=== PATIENT | female | born 1960 | race Caucasian/White ===

== ENCOUNTER 2017-09-10 05:31 | Inpatient (IN) | payer MEDICAID ==
[2017-09-02 14:19] LABS: BASOPHILS # (AUTO) 0.1 X10'3 (0-0.2); EOSINOPHILS % (AUTO) 0.8 % (0-6); LYMPHOCYTES # (AUTO) 2.1 X10'3 (1.1-4.8); LYMPHOCYTES % (AUTO) 32.8 % (21-51); MEAN CORPUSCULAR HEMOGLOBIN 30.3 PG (27.0-31.0); MEAN CORPUSCULAR HGB CONC 33.4 % (33.0-36.5); MEAN CORPUSCULAR VOLUME 90.8 FL (78-98); MEAN PLATELET VOLUME 8.4 FL (7.4-10.4); MONOCYTES # (AUTO) 0.6 X10'3 (0-0.9); MONOCYTES % (AUTO) 8.8 % (2-12); NEUTROPHILS # (AUTO) 3.6 X10'3 (1.8-7.7); NEUTROPHILS % (AUTO) 56.6 % (42-75); PRE OP HEMATOCRIT 48.9 % (35.0-45.0); PRE OP HEMOGLOBIN 16.3 g/dL (12.0-16.0); PRE OP PLATELET COUNT 266 X10'3 (140-440); RED BLOOD COUNT 5.39 X10'6 (4.20-5.60); RED CELL DISTRIBUTION WIDTH 13.2 % (11.5-14.5)
[2017-09-02 14:42] LABS: ALBUMIN 3.7 G/DL (3.4-5.0); ALBUMIN/GLOBULIN RATIO 0.8 (1.1-1.5); ALKALINE PHOSPHATASE 80 IU/L (46-116); BLOOD UREA NITROGEN 9 MG/DL (7-18); BUN/CREATININE RATIO 12.9 (6.6-38.0); CALCIUM 9.1 MG/DL (8.5-10.1); CHLORIDE 104 MMOL/L (99-107); PRE OP ALT 53 U/L (30-65); PRE OP ANION GAP 9 (8-16); PRE OP AST 39 U/L (10-37); PRE OP BILIRUB, TOTAL 0.3 MG/DL (0.0-1.0); PRE OP GLUCOSE 85 MG/DL (70-104); PRE OP POTASSIUM 3.7 MMOL/L (3.4-5.1); PRE OP SODIUM 140 MMOL/L (135-145); TOTAL CARBON DIOXIDE 26.8 MMOL/L (24-32); TOTAL PROTEIN 8.2 G/DL (6.4-8.2); eGFR 87 ML/MIN
[2017-09-10] VITALS (20 sets, daily range): BP systolic 94–153; BP diastolic 52–90
[~2017-09-10] VITALS: Ht 162.6 cm; Wt 96.3 kg
[~2017-09-10 05:31] MED LIST: LEVO25TA2 PO; acetaminophen 325mg tablet PO ONE; clindamycin-Cleocin 900mg/D5W 50 ML IV ONE; famotidine 20mg tablet PO ONE; gabapentin 300mg capsule PO ONE; metoclopramide 5 mg/ml inj IV ONE; oxyCODONE SR 10mg (sust. release) tab PO ONE; ringers solution, lacted 1,000 ML IV SCH; tranexamic acid inj. 1,000 MG in normal saline 100ml IV soln 90 ML IV ONE; vancomycin inj 1,500 MG in normal saline 300ml IV soln IV ONE
[2017-09-10] MEDS ORDERED: LIDOcaine 1% (10mg/ml) 2ml vial ONE (06:00)
[2017-09-10] MEDS ORDERED: morphine 10mg/ml inj. ONE (06:57)
[2017-09-10] MEDS ORDERED: ketorolac trometh. 30mg/ml inj. ONE (06:57)
[2017-09-10] MEDS ORDERED: vancomycin 1,000mg inj ONE (06:57)
[2017-09-10] MEDS ORDERED: ROPIVAcaine 0.5% (5mg/ml) 30ml vial ONE ×2 (06:58→10:02)
[2017-09-10] MEDS ORDERED: cloNIDine hcl/PF 100mcg/ml inj ONE (07:21)
[2017-09-10] MEDS ORDERED: MIDAZolam 1mg/ml 10ml vial ONE (07:23)
[2017-09-10] MEDS ORDERED: fentaNYL/PF 50MCG/1 ML 2ML syringe ONE (07:24)
[2017-09-10] MEDS ORDERED: BUPIVAcaine/PF 7.5mg/ml (0.75%) 10ml vial ONE (07:26)
[2017-09-10] MEDS ORDERED: LIDOcaine 1%/PF 5ML 10 MG/ML VIAL ONE (07:28)
[2017-09-10] MEDS ORDERED: propofol inj 0 ML IV ONE (07:28)
[2017-09-10] MEDS ORDERED: morphine /PF 1mg/ml 10ml inj. ONE (07:29)
[2017-09-10] MEDS ORDERED: calcium chloride 100 MG/1 ML inj IV ONE (07:39)
[2017-09-10] MEDS ORDERED: ringers solution, lacted 1,000 ML IV SCH (08:58)
[2017-09-10] MEDS ORDERED: naloxone 2mg/2ml inj 1.8 MG in normal saline 500ml IV soln 500 ML IV PRN (08:58)
[2017-09-10] MEDS ORDERED: morphine 4 MG/ML inj SYRINge IV PRN ×2 (09:00)
[2017-09-10] MEDS ORDERED: diphenhydrAMINE 50 mg/ml inj IV PRN (09:00)
[2017-09-10] MEDS ORDERED: proCHLORperazine 10 MG/2 ml inj IV PRN (09:00)
[2017-09-10] MEDS ORDERED: ondansetron/PF 4mg/2ml inj IV PRN ×3 (09:00→10:10)
[2017-09-10] MEDS ORDERED: meperidine/PF 25mg/ml syringe IV PRN ×3 (09:00)
[2017-09-10] MEDS ORDERED: acetaminophen 325mg tablet PO PRN (10:10)
[2017-09-10] MEDS ORDERED: diphenhydrAMINE 25mg capsule PO PRN ×2 (10:10)
[2017-09-10] MEDS ORDERED: oxyCODONE IR 5mg (immed. release) tablet PO PRN (10:10)
[2017-09-10] MEDS ORDERED: magnesium hydroxide 30ml (MOM) UD suspension PO PRN (10:10)
[2017-09-10] MEDS ORDERED: bisacodyl 10mg suppository rectal RC PRN (10:10)
[2017-09-10] MEDS ORDERED: HYDROmorphone inj. 0.5 MG/0.5 ML DISP.SYRIN IV PRN ×2 (10:10)
[2017-09-10] MEDS ORDERED: HYDROmorphone 1 mg/ml syringe IV PRN (10:26)
[2017-09-10] MEDS ORDERED: tranexamic acid inj. 1,000 MG in normal saline 100ml IV soln 100 ML IV ONE (13:10)
[2017-09-10] MEDS: acetaminophen 325mg tablet PO SCH ×2 (13:44→20:16)
[2017-09-10] MEDS: gabapentin 300mg capsule PO SCH ×2 (13:44→20:16)
[2017-09-10] MEDS: potassium cl 20mEq in 1/2 NS 1,000 ML IV SCH ×2 (14:04→18:06)
[2017-09-10] MEDS: oxyCODONE IR 5mg (immed. release) tablet PO PRN ×2 (14:59→23:10)
[2017-09-10] MEDS ORDERED: vancomycin/NS 1 GM ADD-VANTAGE 250 ML IV SCH (20:00)
[2017-09-10] MEDS: sennosides 8.6mg tablet PO SCH (20:16)
[2017-09-11] MEDS: potassium cl 20mEq in 1/2 NS 1,000 ML IV SCH ×3 (01:57→18:06)
[2017-09-11] MEDS: acetaminophen 325mg tablet PO SCH ×4 (01:58→19:08)
[2017-09-11 02:00] VITALS: BP 113/67
[2017-09-11] MEDS: oxyCODONE IR 5mg (immed. release) tablet PO PRN ×4 (03:38→21:37)
[2017-09-11 05:00] VITALS: BP 137/76
[2017-09-11] MEDS: levoTHYROXINE 25mcg tablet PO SCH (07:55)
[2017-09-11] MEDS: gabapentin 300mg capsule PO SCH ×3 (07:55→21:37)
[2017-09-11] MEDS: enoxaparin 40mg/0.4ml syringe SQ SCH (07:58)
[2017-09-11 08:34] LABS: BASOPHILS % (AUTO) 0.2 % (0-1); EOSINOPHILS # (AUTO) 0.4 X10'3 (0-0.9); EOSINOPHILS % (AUTO) 4.9 % (0-6); HEMATOCRIT 38.6 % (35.0-45.0); HEMOGLOBIN 13.3 g/dl (12.0-16.0); LYMPHOCYTES # (AUTO) 0.6 X10'3 (1.1-4.8); LYMPHOCYTES % (AUTO) 8.2 % (21-51); MEAN CORPUSCULAR HEMOGLOBIN 31.1 PG (27.0-31.0); MEAN CORPUSCULAR HGB CONC 34.3 % (33.0-36.5); MEAN CORPUSCULAR VOLUME 90.6 FL (78-98); MEAN PLATELET VOLUME 9.9 FL (7.4-10.4); MONOCYTES # (AUTO) 0.4 X10'3 (0-0.9); MONOCYTES % (AUTO) 6.2 % (2-12); NEUTROPHILS # (AUTO) 5.8 X10'3 (1.8-7.7); NEUTROPHILS % (AUTO) 80.5 % (42-75); PLATELET COUNT 182 X10'3 (140-440); RED BLOOD COUNT 4.26 X10'6 (4.20-5.60); RED CELL DISTRIBUTION WIDTH 12.8 % (11.5-14.5); WHITE BLOOD COUNT 7.2 X10'3 (4.5-11.0)
[2017-09-11 10:00] VITALS: BP 134/72
[2017-09-11] MEDS: HYDROmorphone 1 mg/ml syringe IV PRN ×2 (13:21→19:08)
[2017-09-11 14:15] VITALS: BP 141/72
[2017-09-11 18:00] VITALS: BP 147/94
[2017-09-11] MEDS: celeCOXIB 100mg capsule PO SCH (19:08)
[2017-09-11] MEDS: sennosides 8.6mg tablet PO SCH (21:37)
[2017-09-11 22:00] VITALS: BP 154/98
[2017-09-12] MEDS: oxyCODONE IR 5mg (immed. release) tablet PO PRN ×6 (01:48→22:47)
[2017-09-12] MEDS: acetaminophen 325mg tablet PO SCH ×2 (01:48→07:40)
[2017-09-12] MEDS: potassium cl 20mEq in 1/2 NS 1,000 ML IV SCH (02:06)
[2017-09-12 06:00] VITALS: BP 179/101
[2017-09-12] MEDS: celeCOXIB 100mg capsule PO SCH (07:39)
[2017-09-12] MEDS: enoxaparin 40mg/0.4ml syringe SQ SCH (07:39)
[2017-09-12] MEDS: levoTHYROXINE 25mcg tablet PO SCH (07:40)
[2017-09-12] MEDS: gabapentin 300mg capsule PO SCH ×3 (07:40→20:18)
[2017-09-12 07:51] LABS: BASOPHILS % (AUTO) 0.2 % (0-1); EOSINOPHILS # (AUTO) 0.4 X10'3 (0-0.9); EOSINOPHILS % (AUTO) 5.6 % (0-6); HEMATOCRIT 42.5 % (35.0-45.0); HEMOGLOBIN 14.6 g/dl (12.0-16.0); LYMPHOCYTES # (AUTO) 1.6 X10'3 (1.1-4.8); LYMPHOCYTES % (AUTO) 20.4 % (21-51); MEAN CORPUSCULAR HGB CONC 34.4 % (33.0-36.5); MEAN CORPUSCULAR VOLUME 90.2 FL (78-98); MEAN PLATELET VOLUME 9.5 FL (7.4-10.4); MONOCYTES # (AUTO) 0.5 X10'3 (0-0.9); MONOCYTES % (AUTO) 6.7 % (2-12); NEUTROPHILS # (AUTO) 5.4 X10'3 (1.8-7.7); NEUTROPHILS % (AUTO) 67.1 % (42-75); PLATELET COUNT 210 X10'3 (140-440); RED BLOOD COUNT 4.71 X10'6 (4.20-5.60); RED CELL DISTRIBUTION WIDTH 13.2 % (11.5-14.5); WHITE BLOOD COUNT 8.1 X10'3 (4.5-11.0)
[2017-09-12 10:00] VITALS: BP 155/83
[2017-09-12] MEDS ORDERED: acetaminophen 325mg tablet PO PRN (10:10)
[2017-09-12 18:00] VITALS: BP 174/90
[2017-09-12] MEDS: sennosides 8.6mg tablet PO SCH (20:18)
[2017-09-12] MEDS ORDERED: mag hydrox/Alum hydrox/simeth 30ml oral suspension PO ONE (20:20)
[2017-09-12 22:00] VITALS: BP 170/87
[2017-09-13] MEDS: oxyCODONE IR 5mg (immed. release) tablet PO PRN ×6 (02:23→23:58)
[2017-09-13 05:00] VITALS: BP 146/71
[2017-09-13] MEDS: levoTHYROXINE 25mcg tablet PO SCH (06:59)
[2017-09-13] MEDS: gabapentin 300mg capsule PO SCH ×3 (07:37→20:12)
[2017-09-13] MEDS: enoxaparin 40mg/0.4ml syringe SQ SCH (07:37)
[2017-09-13 07:42] LABS: BASOPHILS % (AUTO) 0.4 % (0-1); EOSINOPHILS # (AUTO) 0.2 X10'3 (0-0.9); EOSINOPHILS % (AUTO) 3.4 % (0-6); HEMATOCRIT 42.4 % (35.0-45.0); HEMOGLOBIN 14.6 g/dl (12.0-16.0); LYMPHOCYTES # (AUTO) 1.9 X10'3 (1.1-4.8); LYMPHOCYTES % (AUTO) 26.9 % (21-51); MEAN CORPUSCULAR HGB CONC 34.4 % (33.0-36.5); MEAN CORPUSCULAR VOLUME 90.1 FL (78-98); MONOCYTES # (AUTO) 0.5 X10'3 (0-0.9); MONOCYTES % (AUTO) 7.5 % (2-12); NEUTROPHILS # (AUTO) 4.3 X10'3 (1.8-7.7); NEUTROPHILS % (AUTO) 61.8 % (42-75); PLATELET COUNT 208 X10'3 (140-440); RED BLOOD COUNT 4.71 X10'6 (4.20-5.60)
[2017-09-13 10:00] VITALS: BP 156/74
[2017-09-13 18:00] VITALS: BP 169/90
[2017-09-13] MEDS: sennosides 8.6mg tablet PO SCH (20:12)
[2017-09-13 22:00] VITALS: BP 149/97
[2017-09-14] MEDS: oxyCODONE IR 5mg (immed. release) tablet PO PRN ×2 (04:09→08:34)
[2017-09-14 07:26] VITALS: BP 126/90
[2017-09-14] MEDS: levoTHYROXINE 25mcg tablet PO SCH (07:34)
[2017-09-14] MEDS: gabapentin 300mg capsule PO SCH (07:34)
[2017-09-14] MEDS: enoxaparin 40mg/0.4ml syringe SQ SCH (07:34)
== END 2017-09-14 10:25 | disposition home or self-care (01) | DRG 302 ==
LOC: PAS IN 05:31 → EDSTATUS 08:30 → ORTHO 4S 11:45
PROVIDERS: ADMIT Orthopaedic Surgery; ATTEND Orthopaedic Surgery
PROC: 0SRD0J9 Replacement of Left Knee Joint with Synthetic Substitute, Cemented, Open Approach (ICD-10-PCS; principal; 2017-09-10 07:22)
DX: M17.12 Unilateral primary osteoarthritis, left knee (principal); E03.9 Hypothyroidism, unspecified; F17.210 Nicotine dependence, cigarettes, uncomplicated; J45.909 Unspecified asthma, uncomplicated; Z88.2 Allergy status to sulfonamides; Z88.0 Allergy status to penicillin; Z88.8 Allergy status to other drugs, medicaments and biological substances; Z88.1 Allergy status to other antibiotic agents
CPT/HCPCS: 0232T; 36415; 80053; 84443; 85025; 87070; 93005; 97110; 97116; 97161; 97530; A6255; A6258; A6455; A7000; C1713; C1758; C1776; J0735; J1170; J1650; J1885; J2001; J2250; J2270; J2274; J2405; J2704; J2765; J2795; J3010; J3370; J3490; J7030; J7120; Q0163

== ENCOUNTER 2017-10-28 12:37 | Outpatient (CLI) | payer MEDICAID ==
[~2017-10-28 12:37] MED LIST changes: -acetaminophen 325mg tablet PO ONE; -clindamycin-Cleocin 900mg/D5W 50 ML IV ONE; -famotidine 20mg tablet PO ONE; -gabapentin 300mg capsule PO ONE; -metoclopramide 5 mg/ml inj IV ONE; -oxyCODONE SR 10mg (sust. release) tab PO ONE; -ringers solution, lacted 1,000 ML IV SCH; -tranexamic acid inj. 1,000 MG in normal saline 100ml IV soln 90 ML IV ONE; -vancomycin inj 1,500 MG in normal saline 300ml IV soln IV ONE
[2017-10-28 13:13] LABS: BASOPHILS % (AUTO) 0.6 % (0-1); EOSINOPHILS # (AUTO) 0.2 X10'3 (0-0.9); EOSINOPHILS % (AUTO) 2.4 % (0-6); HEMATOCRIT 41.7 % (35.0-45.0); HEMOGLOBIN 13.9 g/dl (12.0-16.0); LYMPHOCYTES # (AUTO) 2.1 X10'3 (1.1-4.8); LYMPHOCYTES % (AUTO) 33.2 % (21-51); MEAN CORPUSCULAR HEMOGLOBIN 29.6 PG (27.0-31.0); MEAN CORPUSCULAR HGB CONC 33.4 % (33.0-36.5); MEAN CORPUSCULAR VOLUME 88.8 FL (78-98); MEAN PLATELET VOLUME 8.8 FL (7.4-10.4); MONOCYTES # (AUTO) 0.4 X10'3 (0-0.9); MONOCYTES % (AUTO) 6.8 % (2-12); NEUTROPHILS # (AUTO) 3.6 X10'3 (1.8-7.7); PLATELET COUNT 281 X10'3 (140-440); RED BLOOD COUNT 4.69 X10'6 (4.20-5.60); RED CELL DISTRIBUTION WIDTH 13.2 % (11.5-14.5); WHITE BLOOD COUNT 6.4 X10'3 (4.5-11.0)
== END 2017-10-28 23:59 | disposition home or self-care (01) ==
LOC: VAS 12:37
PROVIDERS: ATTEND Orthopaedic Surgery
DX: T84.54XA Infection and inflammatory reaction due to internal left knee prosthesis, initial encounter (principal); F17.200 Nicotine dependence, unspecified, uncomplicated; J45.909 Unspecified asthma, uncomplicated; Y79.2 Prosthetic and other implants, materials and accessory orthopedic devices associated with adverse incidents; Y92.89 Other specified places as the place of occurrence of the external cause
CPT/HCPCS: 36415; 85025; 85651; 86140; 93971

== ENCOUNTER 2020-10-04 08:00 | Inpatient (IN) | payer MEDICAID ==
[2020-09-28 11:34] LABS: BASOPHILS # (AUTO) 0.1 X10'3 (0-0.2); BASOPHILS % (AUTO) 1.2 % (0-1); EOSINOPHILS # (AUTO) 0.1 X10'3 (0-0.9); EOSINOPHILS % (AUTO) 2.1 % (0-6); LYMPHOCYTES # (AUTO) 2.5 X10'3 (1.1-4.8); MEAN CORPUSCULAR HEMOGLOBIN 30.6 PG (27.0-31.0); MEAN CORPUSCULAR HGB CONC 32.9 g/dL (33.0-36.5); MEAN CORPUSCULAR VOLUME 92.9 FL (78-98); MEAN PLATELET VOLUME 8.6 FL (7.4-10.4); MONOCYTES # (AUTO) 0.6 X10'3 (0-0.9); MONOCYTES % (AUTO) 8.4 % (2-12); NEUTROPHILS # (AUTO) 3.4 X10'3 (1.8-7.7); NEUTROPHILS % (AUTO) 51.3 % (42-75); PRE OP HEMATOCRIT 49.1 % (35.0-45.0); PRE OP HEMOGLOBIN 16.1 g/dL (12.0-16.0); PRE OP PLATELET COUNT 233 X10'3 (140-440); RED BLOOD COUNT 5.28 X10'6 (4.20-5.60); RED CELL DISTRIBUTION WIDTH 13.7 % (11.5-14.5)
[2020-09-28 11:36] LABS: PRE OP PARTIAL THROMB. TIME 27 SECONDS (22-32)
[2020-09-28 11:48] LABS: ALBUMIN 3.8 G/DL (3.4-5.0); ALBUMIN/GLOBULIN RATIO 0.9 (1.1-1.5); ALKALINE PHOSPHATASE 77 IU/L (46-116); BLOOD UREA NITROGEN 14 MG/DL (7-18); BUN/CREATININE RATIO 18.7 (6.6-38.0); CALCIUM 8.6 MG/DL (8.5-10.1); CHLORIDE 106 MMOL/L (99-107); CREATININE 0.75 MG/DL (0.40-0.90); PRE OP ALT 55 U/L (30-65); PRE OP ANION GAP 10 (8-16); PRE OP AST 35 U/L (10-37); PRE OP BILIRUB, TOTAL 0.3 MG/DL (0.0-1.0); PRE OP GLUCOSE 95 MG/DL (70-104); PRE OP POTASSIUM 3.9 MMOL/L (3.4-5.1); PRE OP SODIUM 142 MMOL/L (135-145); TOTAL CARBON DIOXIDE 26.1 MMOL/L (24-32); eGFR 79 ML/MIN
[2020-10-04] VITALS (24 sets, daily range): BP systolic 93–131; BP diastolic 53–86
[~2020-10-04] VITALS: Ht 162.6 cm; Wt 93.9 kg
[~2020-10-04 08:00] MED LIST changes: +GABA300C PO; +MILK500C PO; +ROPIVAcaine 0.5% (5mg/ml) 30ml vial ONE; +clindamycin-Cleocin 900mg/D5W 50 ML IV ONE; +epiNEPHrine 1 mg/ml inj ONE; +famotidine 20mg tablet PO ONE; +ketorolac trometh. 30mg/ml inj. ONE; +morphine 10mg/ml inj. ONE; +ringers solution, lacted 1,000 ML IV SCH; +tranexamic acid 1gm/0.7% sal. 100 ML IV ONE; +vancomycin 1,000mg inj ONE; +vancomycin 1,500 MG in NS 300ml IV soln IV ONE
[2020-10-04] MEDS ORDERED: ondansetron/PF 4mg/2ml inj ONE (08:49)
[2020-10-04] MEDS ORDERED: ondansetron/PF 4mg/2ml inj IV ONE (08:50)
[2020-10-04] MEDS ORDERED: tetracaine 1% (10mg/ml) pres. free inj. ONE (10:31)
[2020-10-04] MEDS ORDERED: morphine /PF 1mg/ml 10ml inj. ONE (10:32)
[2020-10-04] MEDS ORDERED: propofol inj 20 ML IV ONE ×5 (10:55→13:12)
[2020-10-04] MEDS ORDERED: MIDAZolam 1 MG/ML 5ML VIAL ONE (10:55)
[2020-10-04] MEDS ORDERED: labetalol 20mg/4ml (5mg/ml) syringe IV PRN (11:15)
[2020-10-04] MEDS ORDERED: acetaminophen 1,000mg/100ml IV 100 ML IV PRN (11:15)
[2020-10-04] MEDS ORDERED: diphenhydrAMINE 50 mg/ml inj IV PRN (11:15)
[2020-10-04] MEDS ORDERED: morphine 2 MG/ML inj. syringe IV PRN (11:15)
[2020-10-04] MEDS ORDERED: ringers solution, lacted 1,000 ML IV SCH (11:15)
[2020-10-04] MEDS ORDERED: ondansetron/PF 4mg/2ml inj IV PRN ×3 (11:15→13:40)
[2020-10-04] MEDS ORDERED: proCHLORperazine 10 MG/2 ml inj IV PRN (11:15)
[2020-10-04] MEDS ORDERED: naloxone 2mg/2ml inj 2 MG in normal saline 500ml IV soln 500 ML IV PRN (11:15)
[2020-10-04] MEDS ORDERED: hydrALAZINE 20mg/ml inj. IV PRN (11:15)
[2020-10-04] MEDS ORDERED: morphine 4 MG/ML inj SYRINge IV PRN (11:15)
[2020-10-04] MEDS ORDERED: meperidine/PF 25mg/ml syringe IV PRN ×3 (11:15)
[2020-10-04] MEDS ORDERED: fentaNYL/PF 50MCG/1 ML 2ML syringe ONE (12:14)
[2020-10-04] MEDS ORDERED: ROPIVAcaine 0.5% (5mg/ml) 30ml vial ONE (13:27)
[2020-10-04] MEDS ORDERED: tranexamic acid 1gm/0.7% sal. 100 ML IV ONE (13:40)
[2020-10-04] MEDS ORDERED: bisacodyl 10mg suppository rectal RC PRN (13:40)
[2020-10-04] MEDS ORDERED: acetaminophen 325mg tablet PO PRN (13:40)
[2020-10-04] MEDS ORDERED: diphenhydrAMINE 25mg capsule PO PRN ×2 (13:40)
[2020-10-04] MEDS ORDERED: oxyCODONE IR 5mg (immed. release) tablet PO PRN (13:40)
--- NOTE | 2020-10-04 13:55 | NUR ---
PT RECEIVED FROM OR VIA BED, ACCOMPANIED BY DR. DOS SANTOS, ANESTHESIOLOGIST - REPORT GIVEN, VSS, PT AWAKENS WITH VERBAL STIMULATION, 20G PIV TO LEFT WRIST-LR RUNNING AT 100ML/HR, F/C IN PLACE-DRAINING, RIGHT KNEE WRAP IWTH ICE PACK IN PLACE-CDI, ON-Q TUBING VISIBLE, +2 PULSES TO BLE, SENSATION L3 - DENIES ANY PAIN.
[2020-10-04] MEDS: ROPIVAcaine 0.2%/PF PUMP/bolus 545 ML ADDCANAL SCH ×2 (14:31→20:30)
--- NOTE | 2020-10-04 15:26 | NUR ---
Patient in room PAS IN 901. I have received report from Maryjane sue and had the opportunity to ask questions and assume patient care.
--- NOTE | 2020-10-04 16:00 | NUR ---
Patient in room ORTHO 4024. I have received report from Maryjane CRESPO and had the opportunity to ask questions and assume patient care.
--- NOTE | 2020-10-04 16:05 | NUR ---
REPORT CALLED TO TETE CRESOP-ALL QUESTIONS ANSWERED, PT AWAKENS EASILY, PAIN BETTER AFTER IV DEMEROL AND TYLENOL, ON-Q CONNECTED AND RUNNING AT 6ML/HR, KNEE WRAP AND ICE PACK IN PLACE-CDI, +2 PLUSES NOTED, SENSATION RETURNED, F/C DRAINING, PT TOLERATING WATER, PIV 20G TO LUE WITH LR RUNNING AT 100ML/HR, SCDS IN PLACE. BELONGINGS TAKEN WITH PT TO ROOM 4024A, BED LOW AND LOCKED, HOOKED UP TO MONITORS, RN IN ROOM TO RECEIVE PT.
[2020-10-04] MEDS: acetaminophen 325mg tablet PO SCH ×2 (17:40→20:00)
[2020-10-04] MEDS: potassium cl 20mEq in 1/2 NS 1,000 ML IV SCH ×2 (17:41→21:40)
--- NOTE | 2020-10-04 18:32 | NUR ---
Problems reprioritized. Patient report given, questions answered & plan of care reviewed with charli sue.
--- NOTE | 2020-10-04 18:35 | NUR ---
Patient in room ORTHO 4024. I have received report from Gokul CRESPO and had the opportunity to ask questions and assume patient care.
[2020-10-04] MEDS ORDERED: vancomycin/NS 1 GM ADD-VANTAGE 250 ML IV SCH (20:00)
--- NOTE | 2020-10-04 20:00 | NUR ---
Her eyes are red and dry looking Addendum: 10/04/20 at 2316 by Ana Luisa Nick RN Amended: Links added.
--- NOTE | 2020-10-04 20:00 | NUR ---
She says the chest hurts but it is muscular type pain not cardiac, her feet are warm but her hands are cold to touch. Addendum: 10/04/20 at 2316 by Ana Luisa Nick RN Amended: Links added.
--- NOTE | 2020-10-04 20:30 | NUR ---
Increased OnQ pump to 8ml/hr since her pain went up to 7/10 and I gave her a new ice pack/ powder pack, and gatched foot of bed. She didn't want to take oral pain pill at this time due to hesitancy with nausea.
[2020-10-04] MEDS: gabapentin 300mg capsule PO SCH (20:34)
[2020-10-04] MEDS: sennosides 8.6mg tablet PO SCH (20:35)
[2020-10-04] MEDS ORDERED: gabapentin 300mg capsule PO SCH (21:00)
[2020-10-05] MEDS: ROPIVAcaine 0.2%/PF PUMP/bolus 545 ML ADDCANAL SCH ×3 (00:27→05:16)
[2020-10-05] MEDS: acetaminophen 325mg tablet PO SCH ×4 (01:59→20:47)
[2020-10-05 02:00] VITALS: BP 117/76
[2020-10-05] MEDS: HYDROmorphone 1 mg/ml syringe IV PRN ×2 (02:09→07:33)
[2020-10-05] MEDS: oxyCODONE IR 5mg (immed. release) tablet PO PRN ×5 (05:15→21:47)
[2020-10-05] MEDS: potassium cl 20mEq in 1/2 NS 1,000 ML IV SCH ×3 (05:40→21:40)
--- NOTE | 2020-10-05 06:15 | NUR ---
Problems reprioritized. Patient report given, questions answered & plan of care reviewed with Maxx CRESPO.
[2020-10-05 06:28] LABS: BASOPHILS % (AUTO) 0.3 % (0-1); EOSINOPHILS # (AUTO) 0.2 X10'3 (0-0.9); EOSINOPHILS % (AUTO) 2.1 % (0-6); HEMATOCRIT 40.5 % (35.0-45.0); HEMOGLOBIN 13.4 g/dl (12.0-16.0); LYMPHOCYTES # (AUTO) 0.8 X10'3 (1.1-4.8); LYMPHOCYTES % (AUTO) 9.6 % (21-51); MEAN CORPUSCULAR HEMOGLOBIN 30.9 PG (27.0-31.0); MEAN CORPUSCULAR VOLUME 93.6 FL (78-98); MEAN PLATELET VOLUME 9.4 FL (7.4-10.4); MONOCYTES # (AUTO) 0.4 X10'3 (0-0.9); MONOCYTES % (AUTO) 5.1 % (2-12); NEUTROPHILS # (AUTO) 6.8 X10'3 (1.8-7.7); NEUTROPHILS % (AUTO) 82.9 % (42-75); PLATELET COUNT 215 X10'3 (140-440); RED BLOOD COUNT 4.32 X10'6 (4.20-5.60); RED CELL DISTRIBUTION WIDTH 13.8 % (11.5-14.5); WHITE BLOOD COUNT 8.2 X10'3 (4.5-11.0)
[2020-10-05 06:31] VITALS: BP 125/86
[2020-10-05 06:47] LABS: ANION GAP 9 (8-16); CHLORIDE 102 MMOL/L (99-107); POTASSIUM 4.2 MMOL/L (3.5-5.1); SODIUM 135 MMOL/L (135-145); TOTAL CARBON DIOXIDE 23.8 MMOL/L (24-32)
[2020-10-05] MEDS: gabapentin 300mg capsule PO SCH ×3 (07:32→20:52)
[2020-10-05] MEDS: enoxaparin 40mg/0.4ml syringe SQ SCH (07:32)
[2020-10-05] MEDS: levoTHYROXINE 25mcg tablet PO SCH (07:32)
[2020-10-05 10:49] VITALS: BP 118/45
--- NOTE | 2020-10-05 12:22 | NUR ---
Joint surgery consult: Pt s/p R knee surgery this admit. Pt unable to wake from sleeping this AM during RD visit. Written high protein ed w/ RD contact information left at bedside. Addendum: 10/05/20 at [address] Amended: Links added.
[2020-10-05] MEDS: HYDROmorphone inj. 0.5 MG/0.5 ML DISP.SYRIN IV PRN ×2 (15:39→20:46)
[2020-10-05 18:00] VITALS: BP 146/76
[2020-10-05] MEDS: celeCOXIB 100mg capsule PO SCH (20:47)
[2020-10-05] MEDS: sennosides 8.6mg tablet PO SCH (20:47)
[2020-10-05 22:00] VITALS: BP 151/84
--- NOTE | 2020-10-05 22:36 | NUR ---
pt states she has a yeast infection. not visualized. urine not seen as pt voids in toilet. refuses measuring Addendum: 10/05/20 at 2241 by Reyes Louie RN Amended: Links added. Addendum: 10/05/20 at 2243 by Reyes Louie RN omit note- wrong patient
[2020-10-06] MEDS: acetaminophen 325mg tablet PO SCH ×2 (02:00→07:35)
[2020-10-06] MEDS: oxyCODONE IR 5mg (immed. release) tablet PO PRN ×3 (04:39→20:30)
[2020-10-06] MEDS: potassium cl 20mEq in 1/2 NS 1,000 ML IV SCH (05:40)
[2020-10-06 06:00] VITALS: BP 153/81
--- NOTE | 2020-10-06 06:36 | NUR ---
reported to days. noted pt resting - anticipates working with PT today and getting up to BSC
--- NOTE | 2020-10-06 06:42 | NUR ---
Patient in room ORTHO 4024. I have received report from ZAK Chambers and had the opportunity to ask questions and assume patient care.
[2020-10-06] MEDS: ROPIVAcaine 0.2% (10 MG/5 ML) BOLUS INJECTION ADDCANAL PRN (07:30)
[2020-10-06] MEDS: enoxaparin 40mg/0.4ml syringe SQ SCH (07:34)
[2020-10-06] MEDS: celeCOXIB 100mg capsule PO SCH ×2 (07:34→20:29)
[2020-10-06] MEDS: gabapentin 300mg capsule PO SCH ×3 (07:35→20:29)
[2020-10-06] MEDS: levoTHYROXINE 25mcg tablet PO SCH (07:35)
[2020-10-06] MEDS: HYDROmorphone inj. 0.5 MG/0.5 ML DISP.SYRIN IV PRN ×3 (07:36→22:02)
[2020-10-06 07:47] LABS: BASOPHILS # (AUTO) 0.1 X10'3 (0-0.2); BASOPHILS % (AUTO) 0.6 % (0-1); EOSINOPHILS # (AUTO) 0.2 X10'3 (0-0.9); EOSINOPHILS % (AUTO) 1.9 % (0-6); HEMATOCRIT 41.8 % (35.0-45.0); HEMOGLOBIN 13.8 g/dl (12.0-16.0); LYMPHOCYTES # (AUTO) 1.1 X10'3 (1.1-4.8); LYMPHOCYTES % (AUTO) 12.1 % (21-51); MEAN CORPUSCULAR VOLUME 93.9 FL (78-98); MEAN PLATELET VOLUME 9.3 FL (7.4-10.4); MONOCYTES # (AUTO) 0.8 X10'3 (0-0.9); MONOCYTES % (AUTO) 8.8 % (2-12); NEUTROPHILS % (AUTO) 76.6 % (42-75); PLATELET COUNT 173 X10'3 (140-440); RED BLOOD COUNT 4.45 X10'6 (4.20-5.60); RED CELL DISTRIBUTION WIDTH 13.6 % (11.5-14.5); WHITE BLOOD COUNT 9.1 X10'3 (4.5-11.0)
[2020-10-06 10:00] VITALS: BP 173/87
[2020-10-06] MEDS: ROPIVAcaine 0.2%/PF PUMP/bolus 545 ML ADDCANAL SCH (11:15)
[2020-10-06] MEDS ORDERED: acetaminophen 325mg tablet PO PRN (13:40)
--- NOTE | 2020-10-06 16:28 | NUR ---
Scanner not working-Verbal patient identification via vernal name/ by patient. Medications rights observed.
[2020-10-06 18:00] VITALS: BP 172/93
--- NOTE | 2020-10-06 18:44 | NUR ---
Problems reprioritized. Patient report given ZAK Pandey questions answered & plan of care reviewed with .
[2020-10-06] MEDS: sennosides 8.6mg tablet PO SCH (20:29)
[2020-10-06 22:00] VITALS: BP 138/76
[2020-10-07] MEDS: oxyCODONE IR 5mg (immed. release) tablet PO PRN ×5 (02:20→23:51)
[2020-10-07] MEDS: HYDROmorphone inj. 0.5 MG/0.5 ML DISP.SYRIN IV PRN (05:43)
[2020-10-07 06:00] VITALS: BP 111/78
--- NOTE | 2020-10-07 06:36 | NUR ---
Problems reprioritized. Patient report given, questions answered & plan of care reviewed with ZAK Cobian.
--- NOTE | 2020-10-07 07:00 | NUR ---
Patient in room ORTHO 4024. I have received report from Garima CRESPO and had the opportunity to ask questions and assume patient care.
[2020-10-07 07:15] LABS: BASOPHILS # (AUTO) 0.1 X10'3 (0-0.2); BASOPHILS % (AUTO) 1.2 % (0-1); EOSINOPHILS # (AUTO) 0.2 X10'3 (0-0.9); EOSINOPHILS % (AUTO) 2.2 % (0-6); HEMATOCRIT 41.7 % (35.0-45.0); HEMOGLOBIN 13.9 g/dl (12.0-16.0); LYMPHOCYTES # (AUTO) 1.9 X10'3 (1.1-4.8); LYMPHOCYTES % (AUTO) 20.2 % (21-51); MEAN CORPUSCULAR HEMOGLOBIN 31.1 PG (27.0-31.0); MEAN CORPUSCULAR HGB CONC 33.2 g/dL (33.0-36.5); MEAN CORPUSCULAR VOLUME 93.6 FL (78-98); MEAN PLATELET VOLUME 9.5 FL (7.4-10.4); MONOCYTES # (AUTO) 0.8 X10'3 (0-0.9); MONOCYTES % (AUTO) 8.4 % (2-12); NEUTROPHILS # (AUTO) 6.3 X10'3 (1.8-7.7); PLATELET COUNT 214 X10'3 (140-440); RED BLOOD COUNT 4.45 X10'6 (4.20-5.60); RED CELL DISTRIBUTION WIDTH 13.4 % (11.5-14.5); WHITE BLOOD COUNT 9.2 X10'3 (4.5-11.0)
[2020-10-07] MEDS: gabapentin 300mg capsule PO SCH ×3 (08:15→20:19)
[2020-10-07] MEDS: celeCOXIB 100mg capsule PO SCH ×2 (08:15→19:19)
[2020-10-07] MEDS: levoTHYROXINE 25mcg tablet PO SCH (08:15)
[2020-10-07] MEDS: enoxaparin 40mg/0.4ml syringe SQ SCH (08:16)
[2020-10-07] MEDS: magnesium hydroxide 30ml (MOM) UD suspension PO PRN (08:23)
[2020-10-07 09:32] VITALS: BP 126/75
[2020-10-07] MEDS: ROPIVAcaine 0.2% (10 MG/5 ML) BOLUS INJECTION ADDCANAL PRN (12:09)
--- NOTE | 2020-10-07 14:52 | NUR ---
Pt ambulated 150ft with pt this a.m. Pt states her last BM was 10/04/20. Pt has received warm prune juice with butter as well as MOM, no results yet. Pts On Q pump was replaced this shift and is currently set to 14. Pt still requiring Dilaudid at times to manage pain. Pt educated that Dilaudid will be dc'd prior to discharge. Will continue to monitor.
[2020-10-07 18:00] VITALS: BP 145/83
--- NOTE | 2020-10-07 18:12 | NUR ---
Problems reprioritized. Patient report given, questions answered & plan of care reviewed with pritesh sue.
--- NOTE | 2020-10-07 18:14 | NUR ---
Patient in room ORTHO 4024. I have received report from Aranza CRESPO and had the opportunity to ask questions and assume patient care.
[2020-10-07] MEDS: sennosides 8.6mg tablet PO SCH (20:19)
[2020-10-07 22:00] VITALS: BP 142/82
[2020-10-08] MEDS: oxyCODONE IR 5mg (immed. release) tablet PO PRN ×2 (03:49→10:02)
[2020-10-08 06:00] VITALS: BP 133/72
--- NOTE | 2020-10-08 06:37 | NUR ---
Problems reprioritized. Patient report given, questions answered & plan of care reviewed with Gokul CRESPO.
--- NOTE | 2020-10-08 06:43 | NUR ---
Patient in room ORTHO 4024. I have received report from Helga sue and had the opportunity to ask questions and assume patient care.
[2020-10-08] MEDS: celeCOXIB 100mg capsule PO SCH (07:13)
[2020-10-08] MEDS: gabapentin 300mg capsule PO SCH ×2 (07:14→12:34)
[2020-10-08] MEDS: levoTHYROXINE 25mcg tablet PO SCH (07:14)
[2020-10-08] MEDS: enoxaparin 40mg/0.4ml syringe SQ SCH (07:15)
[2020-10-08 10:00] VITALS: BP 149/82
[2020-10-08] MEDS: magnesium hydroxide 30ml (MOM) UD suspension PO PRN (10:01)
[2020-10-08] MEDS: ROPIVAcaine 0.2%/PF PUMP/bolus 545 ML ADDCANAL SCH (12:20)
--- NOTE | 2020-10-08 12:59 | NUR ---
went over pt discharge and gathered all belongings. Pt stated they had a walker at home and would not need one for discharge. pt was taken down to lobby in a wheel chair by the aides and left in a private vehicle with a friend.
== END 2020-10-08 13:00 | disposition home or self-care (01) | DRG 326 ==
LOC: UNDOADMIN 08:00 → PAS IN 08:00 → ORTHO 4S 16:19
PROVIDERS: ADMIT Orthopaedic Surgery; ATTEND Orthopaedic Surgery
PROC: 3E0T3BZ Introduction of Anesthetic Agent into Peripheral Nerves and Plexi, Percutaneous Approach (ICD-10-PCS; 2020-10-04)
PROC: 3E0T33Z Introduction of Anti-inflammatory into Peripheral Nerves and Plexi, Percutaneous Approach (ICD-10-PCS; 2020-10-04)
PROC: 0SRC0J9 Replacement of Right Knee Joint with Synthetic Substitute, Cemented, Open Approach (ICD-10-PCS; principal; 2020-10-04 10:25)
DX: M17.11 Unilateral primary osteoarthritis, right knee (principal); B19.20 Unspecified viral hepatitis C without hepatic coma; E03.9 Hypothyroidism, unspecified; M21.161 Varus deformity, not elsewhere classified, right knee; K21.9 Gastro-esophageal reflux disease without esophagitis; Z88.0 Allergy status to penicillin; Z88.8 Allergy status to other drugs, medicaments and biological substances
CPT/HCPCS: 36415; 73560; 80051; 80053; 82948; 84443; 85025; 85610; 85730; 87081; 97110; 97116; 97162; 97530; A4215; A7000; C1713; C1758; C1776; C9520; G0378; J0131; J0171; J1170; J1650; J1885; J2175; J2250; J2270; J2405; J2704; J2795; J3010; J3370; J3480; J3490; J7040; J7120; U0003; U0005

== ENCOUNTER 2020-10-10 10:58 | Emergency (ER) | payer MEDICAID ==
[~2020-10-10] VITALS: Ht 162.6 cm; Wt 93.9 kg
[~2020-10-10 10:58] MED LIST changes: -ROPIVAcaine 0.5% (5mg/ml) 30ml vial ONE; -clindamycin-Cleocin 900mg/D5W 50 ML IV ONE; -epiNEPHrine 1 mg/ml inj ONE; -famotidine 20mg tablet PO ONE; -ketorolac trometh. 30mg/ml inj. ONE; -morphine 10mg/ml inj. ONE; -ringers solution, lacted 1,000 ML IV SCH; -tranexamic acid 1gm/0.7% sal. 100 ML IV ONE; -vancomycin 1,000mg inj ONE; -vancomycin 1,500 MG in NS 300ml IV soln IV ONE
[2020-10-10] MEDS ORDERED: HYDROcodone/acetaminophen 5mg/325mg tablet PO ONE (12:15)
[2020-10-10] MEDS ORDERED: ondansetron 4mg rapidly disintigrating tab PO ONE (12:15)
[2020-10-10 13:08] LABS: BASOPHILS # (AUTO) 0.1 X10'3 (0-0.2); BASOPHILS % (AUTO) 1.4 % (0-1); EOSINOPHILS # (AUTO) 0.3 X10'3 (0-0.9); EOSINOPHILS % (AUTO) 2.5 % (0-6); HEMATOCRIT 41.3 % (35.0-45.0); HEMOGLOBIN 13.8 g/dl (12.0-16.0); LYMPHOCYTES % (AUTO) 19.2 % (21-51); MEAN CORPUSCULAR HGB CONC 33.3 g/dL (33.0-36.5); MEAN CORPUSCULAR VOLUME 92.9 FL (78-98); MEAN PLATELET VOLUME 8.3 FL (7.4-10.4); MONOCYTES % (AUTO) 9.5 % (2-12); NEUTROPHILS # (AUTO) 6.9 X10'3 (1.8-7.7); NEUTROPHILS % (AUTO) 67.4 % (42-75); PLATELET COUNT 368 X10'3 (140-440); RED BLOOD COUNT 4.44 X10'6 (4.20-5.60); RED CELL DISTRIBUTION WIDTH 13.2 % (11.5-14.5); WHITE BLOOD COUNT 10.2 X10'3 (4.5-11.0)
[2020-10-10 13:11] LABS: CLARITY,URINE SLIGHTLY CLOUDY (Clear); COLOR,URINE YELLOW (Yellow); GLUCOSE, URINE NEGATIVE (Neg); KETONES,URINE NEGATIVE (Neg); LEUKOCYTE ESTERASE ,URINE TRACE (Neg); NITRITES, URINE NEGATIVE (Neg); OCCULT BLOOD,URINE NEGATIVE (Neg); PH,URINE 6.5 (4.8-8.0); PROTEIN,URINE NEGATIVE (Neg)
[2020-10-10 13:15] LABS: UA COLLECTION TYPE NON-SPECIFIED
[2020-10-10 13:35] LABS: SQUAMOUS EPITHELIAL CELL,UR MODERATE /LPF (FEW)
[2020-10-10 13:36] LABS: BACTERIA,URINE FEW /HPF (Neg); MUCUS STRANDS MANY /LPF (Neg)
[2020-10-10 13:37] LABS: RBC,URINE 0-2 /HPF (0-2)
[2020-10-10] MEDS ORDERED: CLINDAMYCIN 300mg/NS 50ml IVPB 50 ML IV ONE (13:45)
[2020-10-10 14:05] LABS: ALANINE AMINOTRANSFERASE 35 U/L (12-78); ALBUMIN 2.9 G/DL (3.4-5.0); ALBUMIN/GLOBULIN RATIO 0.5 (1.1-1.5); ALKALINE PHOSPHATASE 62 IU/L (46-116); ANION GAP 11 (8-16); ASPARTATE AMINO TRANSFERASE 25 U/L (10-37); BILIRUBIN,TOTAL 0.5 MG/DL (0.1-1.0); BLOOD UREA NITROGEN 14 MG/DL (7-18); BUN/CREATININE RATIO 19.7 (6.6-38.0); CALCIUM 9.1 MG/DL (8.5-10.1); CHLORIDE 103 MMOL/L (99-107); CREATININE 0.71 MG/DL (0.40-0.90); GLUCOSE 96 MG/DL (70-104); MAGNESIUM 2.5 MG/DL (1.5-2.4); POTASSIUM 4.4 MMOL/L (3.5-5.1); SODIUM 140 MMOL/L (135-145); TOTAL CARBON DIOXIDE 26.1 MMOL/L (24-32); TOTAL PROTEIN 8.3 G/DL (6.4-8.2); eGFR 84 ML/MIN
[2020-10-10] MEDS ORDERED: CLIN300C54 PO (14:13)
[2020-10-10] MEDS ORDERED: clindamycin 150mg capsule PO ONE (14:15)
[2020-10-10 16:44] VITALS: BP 122/66
== END 2020-10-10 16:56 | disposition home or self-care (01) ==
LOC: ER 10:59
DX: L76.82 Other postprocedural complications of skin and subcutaneous tissue (principal); M25.561 Pain in right knee; L08.9 Local infection of the skin and subcutaneous tissue, unspecified; J45.909 Unspecified asthma, uncomplicated; F32.9 Major depressive disorder, single episode, unspecified; Z72.89 Other problems related to lifestyle; Z98.890 Other specified postprocedural states; Z60.2 Problems related to living alone; Z56.0 Unemployment, unspecified; Z79.2 Long term (current) use of antibiotics; Z88.0 Allergy status to penicillin; Z88.2 Allergy status to sulfonamides; Z88.1 Allergy status to other antibiotic agents; Z79.899 Other long term (current) drug therapy
CPT/HCPCS: 36415; 80053; 81001; 83605; 83735; 84145; 85025; 87040; 87088; 93005; 99284

== ENCOUNTER 2022-06-11 07:14 | Emergency (ER) | payer MEDICAID ==
[~2022-06-11] VITALS: Ht 162.6 cm; Wt 96.8 kg
[2022-06-11 07:40] VITALS: BP 142/88
[2022-06-11] MEDS ORDERED: proparacaine 0.5% ophthalmic drops 15ml EACHEYE ONE (09:25)
== END 2022-06-11 10:07 | disposition home or self-care (01) ==
LOC: ER 07:15
DX: H10.9 Unspecified conjunctivitis (principal); H11.002 Unspecified pterygium of left eye; J45.909 Unspecified asthma, uncomplicated; F32.9 Major depressive disorder, single episode, unspecified; Z86.19 Personal history of other infectious and parasitic diseases; Z72.89 Other problems related to lifestyle; Z56.0 Unemployment, unspecified; Z60.2 Problems related to living alone; Z88.1 Allergy status to other antibiotic agents; Z88.0 Allergy status to penicillin; Z88.2 Allergy status to sulfonamides; Z79.899 Other long term (current) drug therapy
CPT/HCPCS: 99283